=== PATIENT | female | born 1995 | race Two or more races ===

== ENCOUNTER 2018-07-10 18:58 | Emergency (ER) | payer OTHER ==
[~2018-07-10] VITALS: Ht 175.3 cm; Wt 68.0 kg
[2018-07-10] MEDS ORDERED: PRENATAL + DHA1 EAC1 (19:10)
[2018-07-10] MEDS ORDERED: FOLIC ACID1 MG (19:10)
== END 2018-07-11 00:11 | disposition home or self-care (01) ==
LOC: ER 18:58
DX: O26.892 Other specified pregnancy related conditions, second trimester (principal); J06.9 Acute upper respiratory infection, unspecified; O23.42 Unspecified infection of urinary tract in pregnancy, second trimester; Z34.02 Encounter for supervision of normal first pregnancy, second trimester

== ENCOUNTER 2018-11-27 02:18 | Inpatient (IN) | payer OTHER ==
[~2018-11-27] VITALS: Ht 175.3 cm; Wt 87.5 kg
[~2018-11-27 02:18] MED LIST: FOLIC ACID1 MG; PRENATAL + DHA1 EAC1
== END 2018-11-29 10:55 | disposition home or self-care (01) | DRG 807 ==
LOC: OBS/DEL 02:18 → LDR 06:26 → OB/GYN 06:26
PROVIDERS: ADMIT Obstetrics & Gynecology
PROC: 10E0XZZ Delivery of Products of Conception, External Approach (ICD-10-PCS; principal; 2018-11-27)
PROC: 0KQM0ZZ Repair Perineum Muscle, Open Approach (ICD-10-PCS; 2018-11-27)
PROC: 4A1HXCZ Monitoring of Products of Conception, Cardiac Rate, External Approach (ICD-10-PCS; 2018-11-27)
PROC: 4A033R1 Measurement of Arterial Saturation, Peripheral, Percutaneous Approach (ICD-10-PCS; 2018-11-27)
DX: O70.1 Second degree perineal laceration during delivery (principal); Z37.0 Single live birth; Z3A.39 39 weeks gestation of pregnancy; Z22.330 Carrier of Group B streptococcus

== ENCOUNTER 2021-08-26 09:25 | Inpatient (IN) | payer OTHER ==
[~2021-08-26] VITALS: Ht 175.3 cm; Wt 98.0 kg
== END 2021-08-29 12:42 | disposition home or self-care (01) | DRG 785 ==
LOC: LDR 09:25 → O/R 09:25 → LDR 13:19 → O/R 08-27 00:09 → OB/GYN 08-27 13:52
PROVIDERS: ADMIT Obstetrics & Gynecology; ATTEND Obstetrics & Gynecology
PROC: 0UB70ZZ Excision of Bilateral Fallopian Tubes, Open Approach (ICD-10-PCS; 2021-08-26)
PROC: 3E0P7VZ Introduction of Hormone into Female Reproductive, Via Natural or Artificial Opening (ICD-10-PCS; 2021-08-26)
PROC: 4A1HXFZ Monitoring of Products of Conception, Cardiac Rhythm, External Approach (ICD-10-PCS; 2021-08-26)
PROC: 10D00Z1 Extraction of Products of Conception, Low, Open Approach (ICD-10-PCS; principal; 2021-08-26 18:30)
DX: O65.8 Obstructed labor due to other maternal pelvic abnormalities (principal); O42.02 Full-term premature rupture of membranes, onset of labor within 24 hours of rupture; O99.824 Streptococcus B carrier state complicating childbirth; Z30.2 Encounter for sterilization; Z3A.39 39 weeks gestation of pregnancy; Z37.0 Single live birth